=== PATIENT | female | born 1965 | race African-American/Black ===

== ENCOUNTER 2024-04-20 08:38 | Emergency (ER) | payer MEDICAID ==
[~2024-04-20] VITALS: Ht 160 cm; Wt 109.0 kg
[2024-04-20 08:48] VITALS: O2SAT 97
[2024-04-20 08:54] VITALS: BP 145/87; PULSE 89; RESP 18; TEMP 36.9; O2SAT 100
== END 2024-04-20 11:35 | disposition home or self-care (01) ==
LOC: ER 08:38
DX: S63.91XA Sprain of unspecified part of right wrist and hand, initial encounter (principal); Z88.1 Allergy status to other antibiotic agents; W23.0XXA Caught, crushed, jammed, or pinched between moving objects, initial encounter; Y93.89 Activity, other specified; Y92.89 Other specified places as the place of occurrence of the external cause; Y99.8 Other external cause status
CPT/HCPCS: 73130; 99283